=== PATIENT | female | born 1960 | race Caucasian/White ===

== ENCOUNTER 2019-05-07 14:22 | Emergency (ER) | payer BC, OTHER ==
[~2019-05-07] VITALS: Ht 167.6 cm; Wt 90.7 kg
[~2019-05-07 14:22] MED LIST: ASA; CYMBALTA; LITHIUM; TOPAMAX; ZOLP10TA; ZOMIG
[2019-05-07 16:11] VITALS: BP 157/97
[2019-05-07] MEDS ORDERED: ACETAMINOPHEN 325 MG TAB PO ONE (16:30)
[2019-05-07] MEDS ORDERED: METHOCARBAMOL 500 MG TAB PO ONE (16:30)
== END 2019-05-07 16:58 | disposition home or self-care (01) ==
LOC: EDBD 14:22 → ER 14:22
DX: M62.838 Other muscle spasm (principal); M54.9 Dorsalgia, unspecified; R51 Headache; I10 Essential (primary) hypertension; J45.909 Unspecified asthma, uncomplicated; Z90.89 Acquired absence of other organs; Z88.6 Allergy status to analgesic agent; V43.62XA Car passenger injured in collision with other type car in traffic accident, initial encounter; Y93.89 Activity, other specified; Y99.8 Other external cause status; Y92.410 Unspecified street and highway as the place of occurrence of the external cause
CPT/HCPCS: 70450; 72070; 72100; 72125